=== PATIENT | male | born 1975 | race Caucasian/White ===

== ENCOUNTER 2024-02-10 12:00 | Emergency (ER) | payer OTHER, SELFPAY ==
[2024-02-10 12:06] VITALS: BP 127/87
--- NOTE | 2024-02-10 12:57 | ED.GENMED ---
History of Present Illness
<Norah Guo MD, Resident - Last Filed: 02/10/24 15:21>
General
Chief Complaint: Heart Rate Problem
Source: patient and spouse
Exam Limitations: none
Time Seen by Provider: 02/10/24 12:32
Nursing documentation reviewed up to this point in time: agreed with
History of Present Illness
History of Present Illness:
49-year-old male with history of abdominal/inguinal hernia who presented to the ED with complaints of palpitations x 1 day. Symptom onset last night with palpitations lasting a few seconds only, average of 3 times in an hour. He otherwise feels
well. He has no chronic medical conditions and takes no medications.
He was seen in the ED in 2021 for anterior chest pain radiating to mid back. EKG and imaging were normal and he was diagnosed with costochondritis. There is a remote smoking history, and he drinks a few beers a day, a few times a week. He had 4
beers yesterday.
Reports feeling generally tired and occasional momentary mild dyspnea during palpitations which resolves immediately. Denies headaches, dizziness/lightheadedness, nausea/vomiting/abdominal pain, chest pain or thigh/calf pain. No recent illness.
Past History
<Norah Guo MD, Resident - Last Filed: 02/10/24 15:21>
Past History
ED Past Medical History: None
ED Past Surgical History: Orthopedic (multiple fractures) and Other (Hernia repair)
Social History
Tobacco: Former smoker (Quit 40 years ago)
Alcohol: Occasional (a few beers, a few times a week)
Drug: None
Personal:
Living: with family
Family History
Family History: CAD (father of [place] at 57) and Unable to obtain (mother: Stroke at 62)
Review of Systems
<Norah Guo MD, Resident - Last Filed: 02/10/24 15:21>
Review of Systems
Allergies reviewed?: Yes
Constitutional: Reports fatigue
Respiratory: Reports trouble breathing; Denies cough
Cardiac: Reports palpitations; Denies chest pain, diaphoresis or syncope
ABD/GI: Denies abdominal pain, nausea, vomiting or diarrhea
Musculoskeletal: Denies muscle pain
Neurological: Denies dizzy
Phy Exam
<Norah Guo MD, Resident - Last Filed: 02/10/24 15:21>
General Physical Exam
General Presentation: well appearing and no apparent distress
General age: appears stated age
General Skin: warm and dry
General Habitus: normal
General Mental: alert
General Hydration: appears well hydrated
Cardiovascular Exam
Cardiovascular Exam: regular rate/rhythm, no edema, no gallop, no murmur and normal peripheral pulses (posterior tibial)
Heart Sounds: normal
Pulmonary Exam
Pulmonary Exam: lungs clear, no respiratory distress, no rales, no crackles, no rhonchi, no wheezing and no cough
Oxygen Status: room air
Gastrointestinal Exam
Gastrointestinal Exam: normal bowel sounds, non tender, soft, non distended and other (no peritoneal signs)
Course
<Norah Guo MD, Resident - Last Filed: 02/10/24 15:21>
Orders/Labs/Results
Orders:
Orders
02/10/24 12:01
EKG [Electrocardiogram (*1)] Stat
Reason for Study: Palpitations
EKG- Treatment ONCE
02/10/24 13:16
Complete Blood Count/No Diff Urgent
Comprehensive Metabolic Panel Urgent
TSH Reflex To Free T4 Stat
02/10/24 14:03
Add On- LAB Urgent
Tests Added?: lyme progressive
Abnormal Lab Results
02/10/24
13:16
WBC 3.8 L 10^3/uL
(4.8-10.8)
RBC 4.36 L 10^6/uL
(4.70-6.10)
Hct 38.7 L %
(39.0-52.0)
MCH 31.9 H pg
(27.0-31.0)
Plt Count 123 L 10^3/uL
(130-400)
Glucose 103 H mg/dl
(70-99)
Total Bilirubin 2.0 H mg/dl
(0.2-1.3)
02/10/24 13:16
02/10/24 13:16
Vital Signs
Initial and Last Documented VS:
Initial Vital Signs
Temp Pulse Resp BP Pulse Ox
98.2 F 68 16 127/87 98
02/10/24 12:06 02/10/24 12:06 02/10/24 12:06 02/10/24 12:06 02/10/24 12:06
Last Documented Vital Signs
Temp Pulse Resp BP Pulse Ox
98.2 F 64 18 128/76 98
02/10/24 12:06 02/10/24 14:28 02/10/24 14:28 02/10/24 14:28 02/10/24 14:28
<Xiang Parker, DO - Last Filed: 02/10/24 14:07>
Orders/Labs/Results
Orders:
Orders
02/10/24 12:01
EKG [Electrocardiogram (*1)] Stat
Reason for Study: Palpitations
EKG- Treatment ONCE
02/10/24 13:16
Complete Blood Count/No Diff Urgent
Comprehensive Metabolic Panel Urgent
TSH Reflex To Free T4 Stat
02/10/24 14:03
Add On- LAB Urgent
Tests Added?: lyme progressive
Abnormal Lab Results
02/10/24
13:16
WBC 3.8 L 10^3/uL
(4.8-10.8)
RBC 4.36 L 10^6/uL
(4.70-6.10)
Hct 38.7 L %
(39.0-52.0)
MCH 31.9 H pg
(27.0-31.0)
Plt Count 123 L 10^3/uL
(130-400)
Glucose 103 H mg/dl
(70-99)
Total Bilirubin 2.0 H mg/dl
(0.2-1.3)
02/10/24 13:16
02/10/24 13:16
Vital Signs
Initial and Last Documented VS:
Initial Vital Signs
Temp Pulse Resp BP Pulse Ox
98.2 F 68 16 127/87 98
02/10/24 12:06 02/10/24 12:06 02/10/24 12:06 02/10/24 12:06 02/10/24 12:06
Last Documented Vital Signs
Temp Pulse Resp BP Pulse Ox
98.2 F 64 18 128/76 98
02/10/24 12:06 02/10/24 14:28 02/10/24 14:28 02/10/24 14:28 02/10/24 14:28
<Norah Guo MD, Resident - Last Filed: 02/10/24 15:21>
MDM/Problems Addressed
Differential Diagnosis Includes:
Arrhythmia, anemia, valvular disease, electrolyte abnormality, anxiety
MDM/Problems Addressed:
Well-appearing patient. EKG normal. Patient had episode of palpitation lasting a few seconds while I was in the room, with no notable change on front end engineer. Physical exam is normal. Will check thyroid function, CBC, CMP and reassess shortly.
Update: CMP, CBC, TSH, EKG benign.
Pt remains well appearing and hemodynamically stable. Possibly PACs/PVCs. No indications for admission or emergent cardiology intervention. Stable for discharge to home, to follow up with cardiology shortly. Family prefers [facility] due
to prior relationship. Can follow up with PCP shortly.
<Norah Guo MD, Resident - Last Filed: 02/10/24 15:21>
*Critical Care Note
Total Time (30-74mins, 75-104mins- exclusive of procedures): Not Applicable
ED Attending Note
<Norah Guo MD, Resident - Last Filed: 02/10/24 15:21>
-
Portions of this chart may have been created with voice recognition software.� Occasional wrong word or��sound alike� substitutions may have occurred due to the inherent limitations of voice recognition software.
<Xiang Parker, DO - Last Filed: 02/10/24 14:07>
ED Attending Note
Patient seen and examined by attending physician: Yes
I performed a history and physical exam of patient and discussed management with resident, I reviewed resident's note and agree with documented findings and plan of care.: Yes
ED Attending Note:
Patient is a 49-year-old male in good health who presents to the emergency department saying he feels like he is having an occasional palpitations since yesterday. Patient feels in his throat and takes his breath away. It can occur in any time.
Does not persist. Patient does have a strong family history for cardiac disease but the patient does not smoke. Patient denies hypertension, elevated cholesterol or diabetes. Patient denies any weight changes. Patient denies any joint pain or
rashes. Patient did have a few beers yesterday. On physical exam patient is not in any distress. Heart is regular in rhythm and rate with no murmurs or gallops or clicks. Neck is supple without thyromegaly. Lungs are clear. Abdomen is soft
nontender. Extremities show no cyanosis, edema or tenderness. Patient has good peripheral pulses. EKG is unremarkable. Believe the patient is either having occasional PVC or PAC. Believe is occurring more spontaneously and not due to thyroid
disease or Lyme's disease. Patient's electrolytes are good. Patient will be referred to cardiology for possible Holter monitor, echo and possible stress test.
Discharge Plan
Departure
Patient Disposition: Home (Routine Discharge)
Date of Disposition: 02/10/24
Time of Disposition: 15:11
Patient with high blood pressure during this ER visit?: No
Condition: Good
Discharge Problem:
Intermittent palpitations
Instructions: Palpitations (DC)
Prescriptions:
No Action
oxycodone-acetaminophen 5 MG/325 MG tablet
1 - 2 tab PO Q4HPRN PRN (Reason: moderate to severe pain) Qty: 20 0RF
Referrals:
Luz Maria Alegre CRNP [Family Provider] -
Shay Boles DO [Active] -
Interventions
Interventions:
*Risk Screen - Suicide Last Done: 02/10/24 12:02
*General Assessment Last Done: 02/10/24 12:14
*Neglect/Abuse Screening Last Done: 02/10/24 12:07
ED- Fall Risk Assessment Last Done: 02/10/24 12:14
ED- Cardiac Assessment Last Done: 02/10/24 12:14
ED- Pulmonary Assessment Last Done: 02/10/24 12:14
Discharge Date and Time
Print Language: SOMALI
[2024-02-10 13:26] LABS: Hematocrit 38.7 % (39.0-52.0); Hemoglobin 13.9 g/dL (13.0-18.0); Mean Corp Hgb Conc. 35.9 g/dL (33.0-37.0); Mean Corpuscular Hgb 31.9 pg (27.0-31.0); Mean Corpuscular Volume 88.8 fL (80.0-94.0); Mean Platelet Volume 9.4 fL (7.4-10.4); Platelet Count 123 10^3/uL (130-400); Red Blood Cell Count 4.36 10^6/uL (4.70-6.10); White Blood Cell Count 3.8 10^3/uL (4.8-10.8)
[2024-02-10 13:46] LABS: ALT (SGPT) 35 U/L (0-50); AST (SGOT) 32 U/L (17-59); Alkaline Phosphatase 85 U/L (38-126); Blood Urea Nitrogen 15 mg/dl (9-20); Calcium 8.9 mg/dl (8.4-10.2); Carbon Dioxide 24 mmol/L (22-30); Chloride 104 mmol/L (98-107); Glucose 103 mg/dl (70-99); Potassium 4.4 mmol/L (3.5-5.1); Sodium 137 mmol/L (135-145); Total Protein 6.7 g/dl (6.3-8.2); eGFR > 60.00
[2024-02-10 14:16] LABS: TSH Reflex To Free T4 1.49 uIU/ml (0.47-4.68)
[2024-02-10 14:28] VITALS: BP 128/76
[2024-02-13 15:39] LABS: Lyme Antibody Screen, EIA Negative (Negative)
== END 2024-02-10 15:37 | disposition home or self-care (01) ==
LOC: EMR 12:00
PROVIDERS: Student in an Organized Health Care Education/Training Program; EMERGENCY PHYSICIAN Emergency Medicine; FAMILY PHYSICIAN Nurse Practitioner Family
DX: R00.2 Palpitations (principal); Z82.3 Family history of stroke; Z82.49 Family history of ischemic heart disease and other diseases of the circulatory system; Z87.891 Personal history of nicotine dependence
CPT/HCPCS: 99283; 80053; 84443; 85027; 86618; 93005

== ENCOUNTER → 2024-03-05 13:52 | Outpatient (REF) | payer OTHER, SELFPAY | LOC: RCS 13:52 | PROVIDERS: ATTENDING PHYSICIAN Student in an Organized Health Care Education/Training Program; FAMILY PHYSICIAN Internal Medicine | DX: R00.2 Palpitations (principal); E78.2 Mixed hyperlipidemia | CPT/HCPCS: 93306 ==

== ENCOUNTER → 2024-03-31 06:31 | Day surgery (SDC) | payer OTHER, SELFPAY | LOC: GI 06:31 | PROVIDERS: ATTENDING PHYSICIAN Internal Medicine | DX: Z12.11 Encounter for screening for malignant neoplasm of colon (principal); D12.0 Benign neoplasm of cecum; K57.30 Diverticulosis of large intestine without perforation or abscess without bleeding; K64.8 Other hemorrhoids | CPT/HCPCS: 45380; 88305 ==

== ENCOUNTER → 2024-05-04 12:37 | Outpatient (REF) | payer OTHER, SELFPAY | LOC: DHSLP 12:37 | PROVIDERS: ATTENDING PHYSICIAN Internal Medicine | DX: G47.33 Obstructive sleep apnea (adult) (pediatric) (principal); R09.02 Hypoxemia | CPT/HCPCS: 95811 ==

== ENCOUNTER 2024-12-20 00:55 | Emergency (ER) | payer OTHER, SELFPAY ==
[2024-12-20 00:57] VITALS: BP 117/72
[2024-12-20 00:58] VITALS: BP 109/70; BMI 27.4
[2024-12-20 01:00] VITALS: BP 109/70
[2024-12-20 02:03] LABS: Hematocrit 43.3 % (39.0-52.0); Hemoglobin 14.9 g/dL (13.0-18.0); Mean Corp Hgb Conc. 34.4 g/dL (33.0-37.0); Mean Corpuscular Volume 92.5 fL (80.0-94.0); Nucleated Red Blood Cells % 0 % (-); Platelet Count 127 10^3/uL (130-400); Red Cell Dist. Width 13.3 % (11.5-14.5)
[2024-12-20 02:19] LABS: ALT (SGPT) 85 U/L (0-50); AST (SGOT) 48 U/L (17-59); Albumin 4.3 g/dl (3.5-5.0); Alkaline Phosphatase 64 U/L (38-126); Blood Urea Nitrogen 13 mg/dl (9-20); Calcium 8.6 mg/dl (8.4-10.2); Carbon Dioxide 23 mmol/L (22-30); Chloride 107 mmol/L (98-107); Estimated Creatinine Clearance 96 ml/min; Glucose 108 mg/dl (70-99); Potassium 3.9 mmol/L (3.5-5.1); Sodium 141 mmol/L (135-145); Total Protein 7.2 g/dl (6.3-8.2); eGFR > 60.00
[2024-12-20] MEDS: NSS 1000 IV (02:25)
[2024-12-20] MEDS: TYLENOL 1000 MG PO (02:28)
[2024-12-20] MEDS: TORADOL 15 MG IV (02:28)
--- NOTE | 2024-12-20 03:14 | ED.GENMED ---
History of Present Illness
General
Chief Complaint: Fainting/Passed Out
Source: patient
Exam Limitations: none
Time Seen by Provider: 12/20/24 02:12
Nursing documentation reviewed up to this point in time: agreed with
History of Present Illness
History of Present Illness:
Patient presents to ED for evaluation secondary to witnessed syncopal episode lasting 'few seconds'. Patient was at home outside on the driveway playing with his children, and running, when he felt sudden sharp pain in the back of his right thigh,
which caused him to stop and fall to the ground. Denies any injuries from the fall. Patient experienced significant pain. Patient was assisted inside the grass, to be seated on a chair, when he passed out for few seconds. He woke up
spontaneously within few seconds. Denies confusion. Denies preceding palpitations or dizziness. Denies nausea or vomiting. Patient also does admit to having consumed a fair amount of alcohol during the day. Denies previous history of similar
symptoms. Denies recent illness. Denies recent change in medications or diet. There is family history of significant cardiac disease however. Patient has high cholesterol, and was prescribed medication, which he himself discontinued.
Past History
Past History
ED Past Medical History: None
ED Past Surgical History: Orthopedic (multiple fractures) and Other (Hernia repair)
Social History
Tobacco: Former smoker (Quit 40 years ago)
Alcohol: Occasional (a few beers, a few times a week)
Drug: None
Personal:
Living: with family
Family History
Family History: CAD (father of [place] at 57) and Unable to obtain (mother: Stroke at 62)
Review of Systems
Review of Systems
Allergies reviewed?: Yes
All Other Systems: ROS reviewed and negative except as documented in HPI and ROS
Constitutional: Reports no symptoms
Respiratory: Reports no symptoms; Denies trouble breathing
Cardiac: Reports syncope; Denies chest pain or palpitations
ABD/GI: Reports no symptoms; Denies nausea or vomiting
Musculoskeletal: Reports other (thigh pain)
Skin: Reports no symptoms
Neurological: Reports no symptoms; Denies dizzy, headache or weakness
Phy Exam
Physical Exam
Physical Exam:
Physical Exam
General: mild painful distress, not acutely ill. afebrile
Head: nc/at. eomi
Neck: supple. no meningeal signs.
Heart: s1/s2 regular rate and rhythm. no murmur
Lungs: no acute respiratory distress. clear bilaterally
Abdomen: normal bowel sounds. not tender.
Neuro: alert and oriented x 3. no focal neurological deficits
Skin: no rash
Psychiatric: well kept. interactive and cooperative
Extremities: no edema. no calf tenderness. mild tenderness to palpation over right posterior thigh without erythema/ecchymosis/swelling
Course
Orders/Labs/Results
Orders:
Orders
12/20/24 01:54
CBC/With Diff [Complete Blood Count/With Diff] Urgent
CMP [Comprehensive Metabolic Panel] Urgent
12/20/24 02:18
Acetaminophen [Tylenol] 1,000 mg PO NOW STA
Ketorolac [Toradol] 15 mg IV NOW STA
12/20/24 02:22
Electrocardiogram (*1) Urgent
Reason for Study: Syncope
EKG- Treatment ONCE
0.9% Sodium Chloride 1000 ml [Nss] 1,000 ml IV BOLUS
Abnormal Lab Results
12/20/24
01:54
WBC 3.7 L 10^3/uL
(4.8-10.8)
RBC 4.68 L 10^6/uL
(4.70-6.10)
MCH 31.8 H pg
(27.0-31.0)
Plt Count 127 L 10^3/uL
(130-400)
Absolute Lymphs (auto) 0.9 L 10^3/uL
(1.2-3.4)
Monocytes % 12.9 H %
(1.7-9.3)
Glucose 108 H mg/dl
(70-99)
Total Bilirubin 1.4 H mg/dl
(0.2-1.3)
ALT 85 H U/L
(0-50)
12/20/24 01:54
12/20/24 01:54
Vital Signs
Initial and Last Documented VS:
Initial Vital Signs
Pulse Resp BP Pulse Ox
79 14 117/72 97
12/20/24 00:57 12/20/24 00:57 12/20/24 00:57 12/20/24 00:57
Last Documented Vital Signs
Temp Pulse Resp BP Pulse Ox
97.9 F 81 19 109/70 98
12/20/24 00:58 12/20/24 01:00 12/20/24 01:00 12/20/24 01:00 12/20/24 04:22
MDM/Problems Addressed
MDM/Problems Addressed:
Patient's presenting symptoms likely vasovagal response, secondary to severe pain along with mild dehydration. Otherwise, patient with unremarkable workup and remains stable during observation. In addition, patient with likely hamstring strain
versus tear. As such, patient will be provided with crutches with recommendation to not weight-bear until reevaluation with PCP/orthopedic surgery. Patient also counseled about speaking with his PCP and restarting his cholesterol medication.
Patient expressed understanding at time of discharge, to the care of his family
*Pulse Oximetry
SaO2: 96
Oxygen Mode of Delivery: Room air
Patient hypoxic: no
*Critical Care Note
Total Time (30-74mins, 75-104mins- exclusive of procedures): Not Applicable
ED Attending Note
-
Portions of this chart may have been created with voice recognition software.� Occasional wrong word or��sound alike� substitutions may have occurred due to the inherent limitations of voice recognition software.
Discharge Plan
Departure
Patient Disposition: Home (Routine Discharge)
Date of Disposition: 12/20/24
Time of Disposition: 03:14
Patient with high blood pressure during this ER visit?: No
Discharge Problem:
Vasovagal response, Hamstring strain
Instructions: Hamstring Muscle Strain (DC), Vasovagal Response (DC), How to use crutches
Prescriptions:
No Action
oxycodone-acetaminophen 5 MG/325 MG tablet
1 - 2 tab PO Q4HPRN PRN (Reason: moderate to severe pain) Qty: 20 0RF
Referrals:
Prudencio Nair MD [Active, Orthopedics]
Stephie Harris MD [Family Provider, Family Practice]
Activity Restrictions/Additional Instructions:
As discussed, please follow-up with your primary care physician and referred to orthopedic surgeon for further evaluation and treatment.
Interventions
Interventions:
*Risk Screen - Suicide Last Done: 12/20/24 01:06
*General Assessment Last Done: 12/20/24 00:58
*Neglect/Abuse Screening Last Done: 12/20/24 00:58
*ED- Fall Risk Assessment Last Done: 12/20/24 00:58
*ED COVID-19 Vaccine History Last Done: 12/20/24 00:58
*Nursing Disposition Last Done: 12/20/24 04:22
ED- Cardiac Assessment Last Done: 12/20/24 01:06
ED- Neurological Assessment Last Done: 12/20/24 01:06
Discharge Date and Time
Discharge Date/Time: 12/20/24 04:00
Print Language: GERMAN
== END 2024-12-20 04:00 | disposition home or self-care (01) ==
LOC: EMR 00:55
PROVIDERS: EMERGENCY PHYSICIAN Emergency Medicine; FAMILY PHYSICIAN Family Medicine
DX: R55 Syncope and collapse (principal); S76.811A Strain of other specified muscles, fascia and tendons at thigh level, right thigh, initial encounter; E86.0 Dehydration; W18.39XA Other fall on same level, initial encounter; Y93.02 Activity, running; Y92.008 Other place in unspecified non-institutional (private) residence as the place of occurrence of the external cause; E78.00 Pure hypercholesterolemia, unspecified; T50.996A Underdosing of other drugs, medicaments and biological substances, initial encounter; Z91.128 Patient's intentional underdosing of medication regimen for other reason; Z87.891 Personal history of nicotine dependence
CPT/HCPCS: 99284; 96374; 96361; 80053; 85025; 93005